=== PATIENT | female | born 1970 | race Caucasian/White ===

== ENCOUNTER 2017-12-17 16:52 | Emergency (ER) | payer MEDICAID | END 2017-12-17 18:23 | disposition home or self-care (01) | LOC: D.ER 16:52 | DX: S63.502A Unspecified sprain of left wrist, initial encounter (principal); W20.8XXA Other cause of strike by thrown, projected or falling object, initial encounter; Y93.89 Activity, other specified; Y92.019 Unspecified place in single-family (private) house as the place of occurrence of the external cause; F17.200 Nicotine dependence, unspecified, uncomplicated ==